=== PATIENT | female | born 1965 | race Caucasian/White ===

== ENCOUNTER 2018-05-06 13:13 | Inpatient (IN) | payer MEDICAID | END 2018-05-08 12:20 | disposition home or self-care (01) | LOC: ER 13:13 → ED HOLD 20:32 → ORTHO 4S 21:20 ==

== ENCOUNTER 2018-12-19 06:33 | Inpatient (IN) | payer MEDICAID ==
[2018-12-19] VITALS (18 sets, daily range): BP systolic 101–172; BP diastolic 64–104
[~2018-12-19] VITALS: Ht 167.6 cm; Wt 85.0 kg
[~2018-12-19 06:33] MED LIST: NO HOME MEDS; PER10325T PO
[2018-12-19 07:10] LABS: CLARITY,URINE CLOUDY (Clear); COLOR,URINE YELLOW (Yellow); GLUCOSE, URINE NEGATIVE (Neg); KETONES,URINE NEGATIVE (Neg); LEUKOCYTE ESTERASE ,URINE MODERATE (Neg); NITRITES, URINE NEGATIVE (Neg); OCCULT BLOOD,URINE TRACE-INTACT (Neg); PROTEIN,URINE NEGATIVE (Neg)
[2018-12-19 07:13] LABS: UA COLLECTION TYPE CLN CATCH MIDSTREAM
[2018-12-19 07:29] LABS: SQUAMOUS EPITHELIAL CELL,UR MODERATE /LPF (FEW)
[2018-12-19 07:33] LABS: CAL OXALATE CRYSTALS 4+ /HPF (NEGATIVE)
[2018-12-19 07:36] LABS: RBC,URINE 0-2 /HPF (0-2)
[2018-12-19 07:37] LABS: BACTERIA,URINE FEW /HPF (Neg)
[2018-12-19 07:39] LABS: BASOPHILS # (AUTO) 0.1 X10'3 (0-0.2); BASOPHILS % (AUTO) 0.8 % (0-1); EOSINOPHILS # (AUTO) 0.5 X10'3 (0-0.9); EOSINOPHILS % (AUTO) 5.6 % (0-6); HEMATOCRIT 36.9 % (35.0-45.0); HEMOGLOBIN 12.3 g/dl (12.0-16.0); LYMPHOCYTES # (AUTO) 3.2 X10'3 (1.1-4.8); LYMPHOCYTES % (AUTO) 35.8 % (21-51); MEAN CORPUSCULAR HEMOGLOBIN 28.3 PG (27.0-31.0); MEAN CORPUSCULAR HGB CONC 33.4 g/dL (33.0-36.5); MEAN CORPUSCULAR VOLUME 84.8 FL (78-98); MEAN PLATELET VOLUME 7.6 FL (7.4-10.4); MONOCYTES % (AUTO) 11.1 % (2-12); NEUTROPHILS # (AUTO) 4.2 X10'3 (1.8-7.7); NEUTROPHILS % (AUTO) 46.7 % (42-75); PLATELET COUNT 322 X10'3 (140-440); RED BLOOD COUNT 4.35 X10'6 (4.20-5.60); RED CELL DISTRIBUTION WIDTH 13.8 % (11.5-14.5)
[2018-12-19 07:48] LABS: ALANINE AMINOTRANSFERASE 209 U/L (12-78); ALBUMIN/GLOBULIN RATIO 0.7 (1.1-1.5); ALKALINE PHOSPHATASE 147 IU/L (46-116); ANION GAP 5 (8-16); ASPARTATE AMINO TRANSFERASE 146 U/L (10-37); BILIRUBIN,TOTAL 0.2 MG/DL (0.1-1.0); BLOOD UREA NITROGEN 19 MG/DL (7-18); BUN/CREATININE RATIO 31.7 (6.6-38.0); CHLORIDE 103 MMOL/L (99-107); GLUCOSE 106 MG/DL (70-104); POTASSIUM 3.9 MMOL/L (3.5-5.1); SODIUM 138 MMOL/L (135-145); TOTAL CARBON DIOXIDE 29.9 MMOL/L (24-32); TOTAL PROTEIN 7.5 G/DL (6.4-8.2); eGFR > 90 ML/MIN
[2018-12-19 08:02] LABS: CALCIUM 8.6 MG/DL (8.5-10.1)
[2018-12-19 08:47] LABS: LIPASE < 50 U/L (73-393)
[2018-12-19] MEDS ORDERED: mag hydrox/Alum hydrox/simeth 30ml oral suspension PO PRN (10:20)
[2018-12-19] MEDS ORDERED: ondansetron/PF 4mg/2ml inj IV PRN ×2 (10:20→13:35)
[2018-12-19] MEDS ORDERED: HYDROcodone/acetaminophen 5mg/325mg tablet PO PRN (10:20)
[2018-12-19] MEDS ORDERED: acetaminophen 325mg tablet PO PRN ×2 (10:20)
[2018-12-19] MEDS ORDERED: HYDROmorphone 1 mg/ml syringe IV PRN (10:20)
[2018-12-19] MEDS ORDERED: HYDROcodone/acetaminophen 10/325mg tab PO PRN (10:20)
[2018-12-19] MEDS ORDERED: potassium CL 10mEq/100ml bag 100 ML IV PRN ×2 (10:20)
[2018-12-19] MEDS ORDERED: magnesium 4gm in 100ml NS 100 ML IV PRN (10:20)
[2018-12-19] MEDS ORDERED: potassium Cl 20 mEq SR tablet PO PRN ×2 (10:20)
[2018-12-19] MEDS ORDERED: magnesium hydroxide 30ml (MOM) UD suspension PO PRN (10:20)
[2018-12-19] MEDS ORDERED: magnesium 2GM in 50ml NS 50 ML IV PRN (10:20)
[2018-12-19] MEDS ORDERED: magnesium Cl slow-release 64mg tablet PO PRN (10:20)
[2018-12-19] MEDS ORDERED: HYDROmorphone inj. 0.5 MG/0.5 ML DISP.SYRIN IV PRN (10:20)
[2018-12-19] MEDS ORDERED: morphine 4 MG/ML inj SYRINge IV ONE (10:40)
[2018-12-19] MEDS ORDERED: ondansetron/PF 4mg/2ml inj IV ONE (10:40)
[2018-12-19] MEDS ORDERED: normal saline 1000ML IV soln IVB ONE (11:10)
[2018-12-19] MEDS: normal saline 1000ml 1,000 ML IV SCH ×2 (12:31→20:17)
[2018-12-19] MEDS ORDERED: BUPIVAcaine/PF 2.5 mg/ml (0.25%) 30ml vial ONE (12:51)
[2018-12-19] MEDS ORDERED: sevoflurane 250ml liquid IH ONE (13:05)
[2018-12-19] MEDS ORDERED: fentaNYL /PF 50mcg/ml 5ml ampule ONE (13:10)
[2018-12-19] MEDS ORDERED: midazolam 2 mg/2 ml injection ONE (13:10)
[2018-12-19] MEDS ORDERED: ceFOXitin 2 GM ADDVANTGE BAG 50 ML IV ONE (13:26)
[2018-12-19] MEDS ORDERED: ringers solution, lacted 1,000 ML IV SCH (13:34)
[2018-12-19] MEDS ORDERED: proCHLORperazine 10 MG/2 ml inj IV PRN (13:35)
[2018-12-19] MEDS ORDERED: meperidine/PF 25mg/ml syringe IV PRN ×2 (13:35)
[2018-12-19] MEDS ORDERED: morphine 4 MG/ML inj SYRINge IV PRN ×2 (13:35)
[2018-12-19] MEDS ORDERED: sugammadex 200mg/2ml injection IV ONE (13:44)
--- NOTE | 2018-12-19 13:58 | NUR ---
Received from OR via BED, accompanied by Anesthesiologist DR FOFANA and report given by Anesthesiologist. PT DROWSY, NO S/S OF DISTRESS/DISCOMFORT, ABDOMEN W/3 LAP SITES W/BANDAIDS CDI. Addendum: 12/19/18 at 1412 by Vani Cuello RN Amended: Links added.
[2018-12-19] MEDS ORDERED: LIDOcaine 2% (20mg/ml) 5ml vial ONE (14:12)
[2018-12-19] MEDS ORDERED: ondansetron/PF 4mg/2ml inj ONE (14:12)
[2018-12-19] MEDS ORDERED: dexamethasone sod phosphate 4mg/ml inj. ONE (14:12)
[2018-12-19] MEDS ORDERED: rocuronium 10mg/ml inj IV ONE (14:12)
[2018-12-19] MEDS ORDERED: propofol inj 20 ML IV ONE (14:12)
[2018-12-19] MEDS ORDERED: hydrALAZINE 20mg/ml inj. IV ONE (14:13)
[2018-12-19] MEDS: hydrALAZINE 20mg/ml inj. IV PRN ×2 (14:17→14:38)
[2018-12-19] MEDS: meperidine/PF 25mg/ml syringe IV PRN ×2 (14:41→14:48)
--- NOTE | 2018-12-19 15:23 | NUR ---
Report called to receiving nurse. Transferred via BED, 2 BAGS OF PERSONAL Belongings SENT W/PT TO ROOM 350A, PT TRANSFERRED BY ORDERLYS. Special Issues communicated to receiving nurse. YES. Addendum: 12/19/18 at 1533 by Vani Cuello RN Amended: Links added.
--- NOTE | 2018-12-19 18:10 | NUR ---
Patient in room [facility]. I have received report from Bhakti WEATHERS and had the opportunity to ask questions and assume patient care.
--- NOTE | 2018-12-19 18:21 | NUR ---
GAVE REPORT TO NOAM WEATHERS
[2018-12-19] MEDS: piperacillin/tazo 4.5gm/100ml 100 ML IV SCH (20:39)
[2018-12-19] MEDS ORDERED: temazepam 15mg capsule PO PRN (21:00)
[2018-12-20] VITALS: BP 105/65
[2018-12-20 04:44] LABS: BASOPHILS # (AUTO) 0.1 X10'3 (0-0.2); BASOPHILS % (AUTO) 0.5 % (0-1); EOSINOPHILS % (AUTO) 0 % (0-6); HEMATOCRIT 37.5 % (35.0-45.0); HEMOGLOBIN 12.5 g/dl (12.0-16.0); LYMPHOCYTES # (AUTO) 1.5 X10'3 (1.1-4.8); LYMPHOCYTES % (AUTO) 12.1 % (21-51); MEAN CORPUSCULAR HGB CONC 33.3 g/dL (33.0-36.5); MEAN CORPUSCULAR VOLUME 84.2 FL (78-98); MEAN PLATELET VOLUME 7.9 FL (7.4-10.4); MONOCYTES # (AUTO) 0.4 X10'3 (0-0.9); MONOCYTES % (AUTO) 3.3 % (2-12); NEUTROPHILS # (AUTO) 10.6 X10'3 (1.8-7.7); NEUTROPHILS % (AUTO) 84.1 % (42-75); PLATELET COUNT 322 X10'3 (140-440); RED BLOOD COUNT 4.45 X10'6 (4.20-5.60); RED CELL DISTRIBUTION WIDTH 13.6 % (11.5-14.5); WHITE BLOOD COUNT 12.6 X10'3 (4.5-11.0)
[2018-12-20 05:05] LABS: ALANINE AMINOTRANSFERASE 187 U/L (12-78); ALBUMIN 2.8 G/DL (3.4-5.0); ALBUMIN/GLOBULIN RATIO 0.6 (1.1-1.5); ALKALINE PHOSPHATASE 146 IU/L (46-116); ANION GAP 6 (8-16); ASPARTATE AMINO TRANSFERASE 115 U/L (10-37); BILIRUBIN,TOTAL 0.4 MG/DL (0.1-1.0); BLOOD UREA NITROGEN 11 MG/DL (7-18); BUN/CREATININE RATIO 23.9 (6.6-38.0); CALCIUM 8.5 MG/DL (8.5-10.1); CHLORIDE 104 MMOL/L (99-107); CREATININE 0.46 MG/DL (0.40-0.90); GLUCOSE 113 MG/DL (70-104); MAGNESIUM 1.7 MG/DL (1.5-2.4); POTASSIUM 4.1 MMOL/L (3.5-5.1); SODIUM 137 MMOL/L (135-145); TOTAL CARBON DIOXIDE 27.3 MMOL/L (24-32); TOTAL PROTEIN 7.3 G/DL (6.4-8.2); eGFR > 90 ML/MIN
[2018-12-20] MEDS: normal saline 1000ml 1,000 ML IV SCH (06:17)
--- NOTE | 2018-12-20 06:41 | NUR ---
Problems reprioritized. Patient report given, questions answered & plan of care reviewed with Madelin WEATHERS.
--- NOTE | 2018-12-20 06:43 | NUR ---
Patient in room [facility]. I have received report from maykel mckinney and had the opportunity to ask questions and assume patient care.
[2018-12-20 08:00] VITALS: BP 105/70
[2018-12-20] MEDS ORDERED: methadone 10mg tablet PO SCH (08:00)
[2018-12-20] MEDS ORDERED: K and/or MAG REPLACEMENT MC SCH (08:00)
[2018-12-20] MEDS: piperacillin/tazo 4.5gm/100ml 100 ML IV SCH (08:18)
--- NOTE | 2018-12-20 12:54 | NUR ---
PT APPEARS TO HAVE LEFT WITHOUT DISCHARGE BEING COMPLETE. SHE DISCONNECTED HERSELF FROM IV TUBING, HOWEVER I DID NOT REMOVE HER IV SO I AM UNSURE IF PT LEFT THE FACILITY WITH IT IN OR IF SHE PULLED IT OUT. I WILL TRY TO CALL AND MAKE CONTACT WITH PT NOW.
--- NOTE | 2018-12-20 13:05 | NUR ---
LEFT MESSAGE ON VOICEMAIL FOR PT TO CALL BACK TO RECEIVE DISCHARGE EDUCATION
[2018-12-21 06:23] LABS: HBSAG SCREEN Negative (Negative); HEP A AB, IGM Negative (Negative); HEP B CORE AB, IGM Negative (Negative); HEPATITIS C ANTIBODY >11.0 s/co ratio (0.0-0.9)
== END 2018-12-20 12:30 | disposition home or self-care (01) | DRG 234 ==
LOC: ER 06:33 → ED HOLD 10:58 → SUR 3N 15:34
PROVIDERS: ADMIT Family Medicine; ATTEND Family Medicine
PROC: 0DTJ4ZZ Resection of Appendix, Percutaneous Endoscopic Approach (ICD-10-PCS; principal; 2018-12-20)
DX: K35.80 Unspecified acute appendicitis (principal); E28.2 Polycystic ovarian syndrome; E66.9 Obesity, unspecified; R74.0 Nonspecific elevation of levels of transaminase and lactic acid dehydrogenase [LDH]; F11.90 Opioid use, unspecified, uncomplicated; Z90.710 Acquired absence of both cervix and uterus; Z79.899 Other long term (current) drug therapy; Z68.30 Body mass index [BMI] 30.0-30.9, adult
CPT/HCPCS: 36415; 74176; 80053; 80074; 81001; 83690; 83735; 85025; 87088; 93005; 99285; A4215; A4618; A7000; C9399; G0378; J0360; J0694; J1100; J1170; J2001; J2175; J2250; J2270; J2405; J2543; J2704; J3010; J3490; J7030; J7120

== ENCOUNTER 2019-01-03 15:36 | Emergency (ER) | payer MEDICAID ==
[~2019-01-03] VITALS: Ht 167.6 cm; Wt 86.4 kg
[2019-01-03 15:50] VITALS: BP 119/86
== END 2019-01-03 16:31 | disposition home or self-care (01) ==
LOC: ER 15:37
DX: Z48.01 Encounter for change or removal of surgical wound dressing (principal); L53.8 Other specified erythematous conditions
CPT/HCPCS: 99281